=== PATIENT | male | born 1995 | race African-American/Black ===

== ENCOUNTER 2022-01-28 13:49 | Emergency (ER) | payer OTHER ==
[2022-01-28 13:56] VITALS: TEMP 98.2
[2022-01-28] MEDS ORDERED: KETOROLAC 15 MG/ML 1 ML VIAL IM STA (14:01)
--- NOTE | 2022-01-28 14:07 | ED ---
General Adult HPI - General Chief complaint: Chest Pain Stated complaint: chest pain Time Seen by Provider: 01/28/22 13:55 Source: patient, RN notes reviewed, old records reviewed Mode of arrival: ambulatory Limitations: no limitations - History of Present Illness Initial comments: This is a 26-year-old male who presents to the emergency department complaining of pain across the top of his chest and the right to the left side tender to palpation worse with movement and states his been going on for 3 days and has been consistent. Patient states only things done differently this he has been running a little bit. 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 Patient denies any shortness of breath or difficulty breathing with the pain patient denies any diaphoretic episodes. Patient states the pain is constant and sharp and definitely worse with movement. Patient denies any abdominal pain. Patient denies lightheadedness or dizziness. - Related Data Previous Rx's Medication Instructions Recorded Ketorolac [Toradol] 10 mg PO Q6HR #15 tab 01/28/22 Allergies Allergy/AdvReac Type Severity Reaction Status Date / Time No Known Allergies Allergy Verified 01/28/22 13:56 Review of Systems ROS Statement: Those systems with pertinent positive or pertinent negative responses have been documented in the HPI. ROS Other: All systems not noted in ROS Statement are negative. Past Medical History Past Medical History: No Reported History History of Any Multi-Drug Resistant Organisms: None Reported Past Surgical History: No Surgical Hx Reported Past Psychological History: No Psychological Hx Reported Smoking Status: Never smoker Past Alcohol Use History: None Reported Past Drug Use History: None Reported General Exam - General Exam Comments Initial Comments: GENERAL: Patient is well-developed and well-nourished. Patient is nontoxic and well- hydrated and is in mild distress. ENT: Neck is soft and supple. No significant lymphadenopathy is noted. Oropharynx is clear. Moist mucous membranes. Neck has full range of motion without eliciting any pain. EYES: The sclera were anicteric and conjunctiva were pink and moist. Extraocular movements were intact and pupils were equal round and reactive to light. Eyelids were unremarkable. PULMONARY: Unlabored respirations. Good breath sounds bilaterally. No audible rales rhonchi or wheezing was noted. CARDIOVASCULAR: There is a regular rate and rhythm without any murmurs gallops or rubs. Patient has reproducible chest pain ABDOMEN: Soft and nontender with normal bowel sounds. SKIN: Skin is clear with no lesions or rashes and otherwise unremarkable. NEUROLOGIC: Patient is alert and oriented x3. Cranial nerves II through XII are grossly intact. Motor and sensory are also intact. Normal speech, volume and content. Symmetrical smile. MUSCULOSKELETAL: Normal extremities with adequate strength and full range of motion. LYMPHATICS: No significant lymphadenopathy is noted PSYCHIATRIC: Normal psychiatric evaluation. Limitations: no limitations Course Vital Signs 01/28/22 13:53 Temperature 98.2 F Pulse Rate 68 Respiratory 20 Rate Blood Pressure 137/75 O2 Sat by Pulse 99 Oximetry Medical Decision Making - Medical Decision Making EKG shows sinus rhythm at 84 bpm NC interval 242 QRS is 94 QT interval 354 QTC is 395. Patient's EKG shows no ST segment elevation or depression Chest x-ray shows no acute abnormality. Patient received Toradol in the emergency department. Disposition Clinical Impression: Chest wall pain Disposition: HOME SELF-CARE Condition: Good Instructions (If sedation given, give patient instructions): Chest Wall Pain (ED) Prescriptions: Ketorolac [Toradol] 10 mg PO Q6HR #15 tab Is patient prescribed a controlled substance at d/c from ED?: No Referrals: None,Stated [Primary Care Provider] - 1-2 days Time of Disposition: 14:59
[2022-01-28 15:01] VITALS: BP 147/94; PULSE 70; RESP 18
--- NOTE | 2022-01-28 15:17 | XR ---
EXAMINATION TYPE: XR chest 2V DATE OF EXAM: 01/28/2022 COMPARISON: NONE HISTORY: Short of breath TECHNIQUE: 2 view FINDINGS: Heart and mediastinum are normal. Lungs are clear. Diaphragm is normal. Bony thorax appears normal. IMPRESSION: Normal chest.
== END 2022-01-28 15:24 | disposition home or self-care (01) ==
LOC: EC 13:49
DX: R07.89 Other chest pain (principal)
CPT/HCPCS: 93005; 71046; 99285; 96372; J1885